=== PATIENT | female | born 1995 | race African-American/Black ===

== ENCOUNTER 2023-09-29 22:14 | Emergency (ER) | payer OTHER ==
[~2023-09-29] VITALS: Ht 162.6 cm; Wt 72.0 kg
[2023-09-29 22:19] VITALS: O2SAT 100
[2023-09-30 00:35] LABS: CLARITY URINE CLOUDY (CLEAR); COLOR URINE DARK YELLOW (YELLOW); GLUCOSE URINE NEGATIVE (NEGATIVE); KETONES URINE TRACE (NEGATIVE); LEUKOCYTE ESTERASE URINE 2+ (NEGATIVE); NITRITE URINE NEGATIVE (NEGATIVE); OCCULT BLOOD URINE TRACE (NEGATIVE); PH URINE 5.5 (4.5-8.0); PROTEIN URINE TRACE (NEGATIVE); SPECIFIC GRAVITY URINE 1.032 (1.005-1.030); UROBILINOGEN URINE 0.2 E.U./dL (0.2-1.0)
[2023-09-30 00:59] LABS: BACTERIA URINE 2+; SQUAMOUS EPITHELIAL CELL URINE 1+ /lpf (RARE/1+); WBC URINE TNTC /hpf (0-2)
[2023-09-30] MEDS ORDERED: DOXY100T2 MT (02:09)
[2023-09-30] MEDS ORDERED: NITR100C MT (02:12)
[2023-09-30] MEDS: CEFTRIAXONE SODIUM 500MG VIAL IM NR (02:32)
[2023-09-30] MEDS: CEFTRIAXONE SODIUM 500MG VIAL IM ONE (02:32)
[2023-09-30] MEDS: LIDOCAINE HCL 1% 20ML VIAL INFIL ONE (02:32)
[2023-09-30 02:50] VITALS: BP 120/67; PULSE 75; RESP 16; TEMP 98.1
[2023-09-30] MEDS ORDERED: DOXY100C5 MT (03:13)
[2023-09-30] MEDS ORDERED: FLUC200T MT (03:13)
== END 2023-09-30 02:52 | disposition home or self-care (01) ==
LOC: ER 22:14
DX: N39.0 Urinary tract infection, site not specified (principal)
CPT/HCPCS: 81003; 81025; 99283; 87086; 87210; 96372; J0696; J3490; Z7610